=== PATIENT | male | born 1975 | race Caucasian/White ===

== ENCOUNTER 2020-12-09 12:39 | Emergency (ER) | payer OTHER ==
[~2020-12-09] VITALS: Ht 175.3 cm; Wt 86.2 kg
[2020-12-09 12:51] VITALS: BP_SYST 148
== END 2020-12-09 13:15 | disposition left against medical advice (07) ==
LOC: SED 12:39
DX: M25.552 Pain in left hip (principal); Z88.0 Allergy status to penicillin; Z88.5 Allergy status to narcotic agent; Z88.8 Allergy status to other drugs, medicaments and biological substances
CPT/HCPCS: 99281